=== PATIENT | female | born 1990 | race Caucasian/White ===

== ENCOUNTER 2018-02-02 08:57 | Inpatient (IN) ==
[2018-02-03] MEDS ORDERED: METHYLERGONOVINE 0.2 MG/ML INJECTION IM PRN (16:08)
[2018-02-03] MEDS ORDERED: CARBOPROST 250 MCG/ML INJECTION IM PRN (16:08)
[2018-02-03] MEDS ORDERED: CALCIUM CARBONATE Chewable 500mg TABLET PO PRN (16:08)
[2018-02-03] MEDS ORDERED: MAG-AL + SIM ORAL LIQUID 30ml PO PRN (16:08)
[2018-02-03] MEDS ORDERED: ACETAMINOPHEN 500 MG TABLET PO PRN (16:08)
[2018-02-03] MEDS ORDERED: DINOPROSTONE 10 MG VAGINAL INSERT VG ONE (16:08)
[2018-02-03] MEDS ORDERED: TERBUTALINE 1 MG/ML VIAL SQ PRN (16:08)
[2018-02-03] MEDS ORDERED: SALINE FLUSH 10ml SYRINGE IV PRN (16:08)
--- OUTSIDE RECORDS SUMMARY | 2018-02-03 16:11 | External Medical Summary | Continuity of Care Document ---
:1990 Author Organization [facility] Address [address] [place], [place] [id number] Phone Care Team Providers Name Role Phone Kimberly Willard APRN Unavailable Unavailable Allergies, Adverse Reactions, Alerts Substance Reaction Severity Status PENICILLIN Itchy Unknown Active Medications Medication Instructions Dosage Effective Dates Status Comments (start - stop) FIBER (unknown - Active strength) Zyrtec 10 mg - Active capsule 28 mg take 1 tablet by Not Available - Active iron-800 mcg oral route every tablet day Problems Condition Effective Dates (start - stop) Clinical Status Encntr for suprvsn of normal first - preg, third trimester 30 weeks gestation of - Encntr screen for infections w sexl - mode of transmiss Encounter for screening for oth - infec/parastc diseases Encntr for suprvsn of normal first - preg, first trimester Encounter for screening of - mother 10 weeks gestation of - Matern care for oth or susp poor fetl - grth, 2nd tri, unsp Encntr for suprvsn of normal first - preg, second trimester 19 weeks gestation of - Matern care for oth or susp poor fetl - grth, 2nd tri, unsp 14 weeks gestation of - Matern care for oth or susp poor fetl - grth, third tri, unsp Partial Placenta Previa Nos Or W/out - Hemorrhage, Third Trimester 30 weeks gestation of - Partial Placenta Previa Nos Or W/out - Hemorrhage, Second Trimester 23 weeks gestation of - Partial Placenta Previa Nos Or W/out - Hemorrhage, Third Trimester Abnormal glucose complicating - 28 weeks gestation of - Abnormal glucose complicating - Encntr for suprvsn of normal first - preg, second trimester 19 weeks gestation of - Encntr for suprvsn of normal first - preg, second trimester 26 weeks gestation of - Encntr for suprvsn of normal first - preg, third trimester 32 weeks gestation of - GERD Active Irritable Bowel Syndrome Active Procedures Procedure Date Immuniz admnin, 1 vac, sngl/combo 19 Yrs + TDAP VACCINE >7 IM OB Visit No Charge Results Test Name Date and Time Measure Units Reference Range Abnormal Flag Comments Unknown Advance Directives Directive Yes / No Effective Date File Name Unknown Encounters Encounter Practice Location Reason(s) Diagnoses Date Provider Care Team Description For Visit Members Edin [place] Encntr for Apr-2 Romero Referring In Womens suprvsn of normal 4-201 Alicia. Provider: Aaron [place], first preg, third 8 700 Alicia Romero [address] [id number] weeks Medical , 700 1522, gestation of [facility], Dr [facility] [address] WISDOM, 120, Smith 120, [id number], Skinny [place], [facility], [place], tel: [phone] [id number] , [place]. tel: tel: [phone] Edin [place] Encntr for Apr-1 Romero Referring In Womens suprvsn of normal 2-201 Alicia. Provider: Aaron [place], first preg, third 8 700 Alicia Romero PO Box [id number] weeks Medical , 700 1522, gestation of [facility], , [facility] [address] W[place], 120, Smith 120, [id number], [place], [place], tel: [phone]. , [place]. tel: tel: [phone] Edin [place] Matern care for Apr-1 Romero Referring In Womens Ultrasound oth or susp poor 2-201 Alicia. Provider: Aaron MANRIQUEZ, fetl grth, third 8 700 Alicia Romero PO Box tri, unspPartial Medical , 700 1522, [facility] Nos [facility] W/out , [facility] [address] WIS[place], Hemorrhage, Third 120, Smith 120, [id number], [id number] weeks Skinny [place], gestation of ALYX [place], tel: [phone]. , [place]. tel: tel: [phone] Edin [place] Partial Placenta Mar-2 Romero Referring In Womens Previa Nos Or 7-201 Alicia. Provider: Aaron MANRIQUEZ, W/out Hemorrhage, 8 700 Alicia Romero PO Box Third Medical , 700 1522, [facility]Ab[facility], glucose , [facility] [address] W[place], complicating 120, Smith 120, [id number], [email or web address] weeks Skinny [place], gestation of ALYX ALYX, tel: [phone]. , [place]. tel: tel: [phone] Edin [facility] Abnormal glucose Mar-2 Romero Referring In Womens complicating 2-201 Alicia. Provider: Aaron MANRIQUEZ, 8 700 Alicia Romero PO Box Medical , 700 1522, [place] [address] Dr [facility] [address] WISDOM, 120, Smith 120, [id number], Skinny [place], ALYX, ALYX, tel: [phone]. , [place]. tel: tel: [phone] Edin [place] Encntr for Mar-1 Romero Referring In Womens suprvsn of normal 4-201 Alicia. Provider: Aaron MANRIQUEZ, first preg, 8 700 Alicia Romero PO Box second Medical K, 700 1522, [email or web address] weeks [facility], gestation of Dr [facility] [address] WIS[place], 120, Smith 120, [id number], Skinny [place], ALYX, ALYX, tel:[phone]. , [place]. tel: tel: [phone] Edin [place] Partial Placenta Feb-2 Romero Referring In Womens Previa Nos Or 1-201 Alicia. Provider: Aaron MANRIQUEZ, W/out Hemorrhage, 8 [address] [facility], 700 1522, [email or web address] weeks [facility], gestation of Dr, [facility] [address] WISDOM, 120, Smith 120, , Skinny [place], ALYX, ALYX, tel:[phone]. , [place]. tel: tel: [phone] Edin [place] Encntr for Gee-2 Romero Referring In Womens suprvsn of normal 5-201 Alicia. Provider: Aaron MANRIQUEZ, first preg, 8 700 Alicia Romero PO Box [facility], 700 1522, [id number] weeks [facility], gestation of , [facility] [address] WISDOM, 120, Smith 120, , Skinny [place], ALYX WISDOM, tel:[phone]. , [place]. tel: tel: [phone] Edin Babb Matern care for Gee-2 Romero Referring In Womens Ultrasound oth or susp poor 5-201 Alicia. Provider: aysha Muniz, 2nd 8 700 Alicia Romero PO Box tri, [facility], for suprvsn of [facility], normal first , [facility] [address] WIS[place], preg, second 120, Smith 120, [id number], [id number] weeks Skinny [place], gestation of ALYX, ALYX, tel: [phone]. , [place]. tel: tel: [phone] Edin Babb Matern care for Dec-2 Romero Referring In Womens oth or susp poor 0-201 Alicia. Provider: aysha Muniz, 2nd 7 700 Alicia Romero PO Box tri, [email or web address] weeks Medical K, 700 1522, gestation of [place] Karthik Quiroga, , [facility] [place], 120, Smith 120, , [place]inny [place], [place], [place], tel:[phone]. , [place]. tel: tel: [phone] Edni Babb Encewelina screen for Nov-2 Romero Referring In Womens infections w sexl 2-201 Alicia. Provider: Aaron MANRIQUEZ, mode of 7 700 Alicia Romero PO Box transmissEncounte Medical K, 700 1522, r for screening [facility], for oth , [facility] [address] WIS[place], infec/parastc 120, Smith 120, , diseasesEncntr [place], for suprvsn of [place], [place], tel: normal first [phone]. preg, first , [place]. tel: trimesterEncounte tel: [phone] r for [phone] screening of [email or web address] weeks gestation of Edin B[place] Nov-2 Ava In Womens 0-201 Mercedes. Aaron MANRIQUEZ, 7 700 [address] [place] [facility] [address], [place] Dr Junaid, [facility] [place], 120, [id number], [place], [place], tel: [phone] , [place]. tel: [phone] Edin [place] Nov-1 Romero In Womens 3-201 Alicia. Aaron MANRIQUEZ, 7 700 PO Box Medical [address], [place] Dr Junaid, [facility] [place], 120, , [place], [place], tel:[phone] , [place]. tel: [phone] Family History Family Member Diagnosis Age At Onset No family history of Breast Cancer No family history of Thyroid Disorder No family history of Cardiovascular Disease No family history of Uterine Cancer No family history of Venous Thrombosis No family history of Pulmonary Embolism No family history of Hypertension No family history of Diabetes No family history of Stroke No family history of Ovarian Cancer No family history of Colon Cancer Immunizations Vaccine Date Status Comments Tdap completed Source: New Immunization Record Rhophylac completed Source: New Immunization Record Influenza, injectable, completed Source: New Immunization Record quadrivalent, preservative free, 3 yrs or older Influenza, injectable, completed Source: Other Provider quadrivalent, preservative free, 3 yrs or older Tdap completed Source: Other Provider MMR completed Source: Other Provider Payers Payer name Insurance type Covered democrat ID Authorization(s) [facility] [id number] [facility] [id number] [facility] [id number] [facility] [id number] Social History Type Description Quantity Date Captured Alcohol Use Details No Caffeine Use Details Unknown Tobacco Use Status Unknown Smoking Status Never smoker Vital Signs Date / Height Weight BMI Pulse Blood Temperature Respiratory Body Head BMI Time: Rate Pressure Rate Surface Circumference percentile Area 202.20 31.3 121/2018 lbs 8 mm[Hg] 8:40 kg/m AM eter (2) Chief Complaint And Reason For Visit Unknown Chief Complaint And Reason For Visit Reason For Referral Reason For Referral Unknown Plan Of Care Date Type Action Status Appointment Harriet Shankar BOOKED Appointment Harriet Shankar BOOKED Appointment Harriet Shankar BOOKED Appointment Harriet Shankar BOOKED Appointment Harriet Shankar BOOKED Future Order: Radiology Order Complete OB Ultrasound > 14 Ordered Weeks ([id number]) Future Order: Radiology Order Ultrasound OB Follow-up ([id number]) Ordered Date Type Problem Goal Intervention Status Start Date Unknown. History Of Present Illness Encounter Date Complaint History Of Present Illness This patient has no known history of present illness Functional Status Encounter Date Functional Assessment Cognitive Assessment Unknown Medications Administered Medication Instructions Dosage Effective Dates (start - stop) Status Comments Drug Treatment Unknown Instructions Date Instruction Additional Information gestational glucose lab screening HIV and other routine tests risk factors identified by history anticipated course of care nutrition and weight gain counseling, special diet toxoplasmosis precautions (cats / raw meat) exercise indications for ultrasound influenza vaccine environmental / work hazards travel tobacco (ask, advise, assess, assist and arrange) alcohol illicit / recreational drugs use of any medications (including supplements, vitamins, herbs, OTC drugs) smoking counseling domestic violence seat belt use genetic testing [facility] docs, dentist, wt gain 25-30# Zika virus assessment & precautions new ob handbook
--- OUTSIDE RECORDS SUMMARY | 2018-02-03 16:12 | External Medical Summary | Continuity of Care Document ---
:1990 Author Organization [facility] Address [address] [place], [place] [phone] Phone Care Team Providers Name Role Phone [...] Effective Dates (start - stop) Clinical Status Abnormal glucose complicating - Encntr screen for infections w sexl [...] complicating - 28 weeks gestation of - Encntr for suprvsn of normal first - preg, second trimester 19 weeks gestation of - Encntr for suprvsn of normal first - preg, second trimester 26 weeks gestation of - Encntr for suprvsn of normal first - preg, third trimester 30 weeks gestation of - GERD Active Irritable Bowel Syndrome Active Procedures Procedure Date Glucose tolerance test (GTT) GTT-added samples Venpnctr fngr/heel/ear stick routne Results Test Name Date and Time Measure Units Reference Range Abnormal Flag Comments Unknown Advance Directives Directive Yes / No Effective Date File Name Unknown Encounters Encounter Practice Location Reason(s) Diagnoses Date Provider Care Team Description For Visit Members Edin [place] Encntr for Romero Referring In Womens suprvsn of normal 2-201 Alicia. Provider: Aaron MANRIQUEZ, first preg, third 8 700 Alicia Romero PO Box [id number] weeks Medical , 700 1522, gestation of [facility] Junaid, Dr [facility] Dr WISDOM, 120, Smith 120, , Skinny [place], [place], [place], tel:[phone]. , [place]. tel: tel: [phone] Edin Babb Matern care for Romero Referring In Womens Ultrasound oth or susp poor 2-201 Alicia. Provider: Aaron MANRIQUEZ, fetl grth, third 8 700 Alicia Romero PO Box tri, unspPartial Medical K, 700 1522, Placenta Previa [facility], Nos Or W/out [facility] Dr WISDOM, Hemorrhage, Third 120, Smith 120, [id number], [id number] weeks Skinny [place], gestation of ALYX ALYX, tel: [phone]. , [place]. tel: tel: [phone] [facility] Partial Placenta Mar-2 Romero Referring In Womens Previa Nos Or 7-201 Alicia. Provider: Aaron MANRIQUEZ, W/out Hemorrhage, 8 700 Alicia Romero PO Box Third Medical K, 700 1522, TrimesterAbnormal [facility] [address], [facility] Dr WISDOM, complicating 120, Smith 120, [id number], [id number] weeks Skinny [place], gestation of ALYX WISDOM, tel: [phone]. , [place]. tel: tel: [phone] [facility] Abnormal glucose Mar-2 Romero Referring In Womens complicating 2-201 Alicia. Provider: Aaron MANRIQUEZ, 8 700 Alicia Romero PO Box Medical , 700 1522, [facility] Junaid, , [facility] Dr WISDOM, 120, Smith 120, , [place]inny [place], ALYX WISDOM, tel: [phone]. , [place]. tel: tel: [phone] [facility] Encntr for Mar-1 Romero Referring In Womens suprvsn of normal 4-201 Alicia. Provider: Aaron MANRIQUEZ, first preg, 8 700 Alicia Romero PO Box [facility] Medical , 700 1522, [email or web address] weeks [facility] Junaid, gestation of Dr, [facility] Dr WISDOM, 120, Smith 120, , [place]inny [place], ALYX WISDOM, tel:[phone]. , [place]. tel: tel: [phone] [facility] Partial Placenta Feb-2 Romero Referring In Womens Previa Nos Or 1-201 Alicia. Provider: Aaron MANRIQUEZ, W/out Hemorrhage, 8 700 Alicia Romero PO Box [facility] , 700 1522, [id number] weeks [facility] Junaid, gestation of , [facility] Dr WISDOM, 120, Smith 120, , [place]inny [place], ALYX WISDOM, tel:[phone]. , [place]. tel: tel: [phone] Edin [place] Encntr for Gee-2 Romero Referring In Womens suprvsn of normal 5-201 Alicia. Provider: Aaron MANRIQUEZ, first preg, 8 700 Alicia Romero PO Box second Medical , 700 1522, [id number] weeks [facility], gestation of Dr, [facility] Dr WISDOM, 120, Smith 120, , [place], [place] ALYX, ALYX, tel: [phone]. , [place]. tel: tel: [phone] Edin Babb Matern care for Gee-2 Romero Referring In Womens Ultrasound oth or susp poor 5-201 Alicia. Provider: [facility]QUEZ, [facility] 2nd 8 700 Alicia Romero PO Box tri, unspEncntr [facility], 700 1522, for suprvsn of [facility], normal first , [facility] Dr WISDOM, preg, second 120, Smith 120, [id number], [email or web address] weeks Skinny [place], gestation of ALYX, ALYX, tel: [phone]. , [place]. tel: tel: [phone] Edin Babb Matern care for Dec-2 Romero Referring In Womens oth or susp poor 0-201 Alicia. Provider: Aaron MANRIQUEZ, aysha villegas, 2nd 7 700 Alicia Romero PO Box tri, [email or web address] weeks Medical , 700 1522, gestation of [facility], Dr, [facility] Dr WISDOM, 120, Smith 120, , [place], [place] ALYX, ALYX, tel: [phone]. , [place]. tel: tel: [phone] Edin B[place] Encewelina screen for Nov-2 Romero Referring In Womens infections w sexl 2-201 Alicia. Provider: Aaron MANRIQUEZ, mode of 7 700 Alicia Romero PO Box transmissEncounte [facility], 700 1522, r for screening [facility], for oth Dr, [facility] Dr WISDOM, infec/parastc 120, Smith 120, , diseasesEncntr [place], for suprvsn of [place], tel: normal first [phone]. preg, first , [place]. tel: trimesterEncounte tel: [phone] r for [phone] screening of [id number] weeks gestation of [facility] Ava In Womens 0-201 Mercedes. [facility], 7 700 PO Box Medical [address], [place] [address] Junaid, [facility] ALYX, 120, [id number], [facility] [place], tel:[phone] , [place]. tel: [phone] [facility] Romero In Womens 3-201 Alicia. [facility], 7 700 PO Box Medical 15[address], [place] [address] Junaid, [facility] ALYX, 120, , [facility] [place], tel: [phone] , [place]. tel: [phone] Family History Family Member Diagnosis Age At [...] Provider Payers Payer name Insurance type Covered republican ID Authorization(s) [employer] [place] [id number] [employer] [place] [id number] [employer] [place] [id number] [employer] [place] [id number] Social History Type Description Quantity Date Captured Unknown Vital Signs Date / Height Weight BMI Pulse Blood Temperature Respiratory Body Head BMI Time: Rate Pressure Rate Surface Circumference percentile Area Unknown Chief Complaint And Reason For Visit Unknown Chief Complaint And Reason For Visit Reason For Referral Reason For Referral Unknown Plan Of Care Date Type Action Status Appointment Harriet Shankar BOOKED Appointment Harriet Shankar BOOKED Appointment Harriet Shankar BOOKED Appointment Harriet Shankar BOOKED Appointment Harriet Shankar BOOKED Appointment Harriet Shankar BOOKED Future Order: Radiology Order Complete OB Ultrasound > 14 Ordered Weeks ([id number]) Future Order: Radiology Order Ultrasound OB Follow-up ([id number]) Ordered Date Type Problem Goal Intervention Status [...]
--- OUTSIDE RECORDS SUMMARY | 2018-02-03 16:12 | External Medical Summary | Continuity of Care Document ---
:1990 Author Organization [facility] Address [address] [place], [place] [id number] Phone Care Team Providers Name Role Phone [...] Effective Dates (start - stop) Clinical Status Matern care for oth or susp poor fetl - grth, third tri, unsp Partial Placenta Previa Nos Or W/out - Hemorrhage, Third Trimester 30 weeks gestation of - Encntr screen [...] tri, unsp 14 weeks gestation of - Partial Placenta Previa [...] trimester 30 weeks gestation of - Encntr for suprvsn of normal first - preg, third trimester 32 weeks gestation of - GERD Active Irritable Bowel Syndrome Active Procedures Procedure Date Ultrasnd preg uterus, flwup/repeat Results Test Name Date and Time Measure Units Reference Range Abnormal Flag Comments Unknown Advance Directives Directive Yes / No Effective Date File Name Unknown Encounters Encounter Practice Location Reason(s) Diagnoses Date Provider Care Team Description For Visit Members Edin Babb Encntr for Apr-2 Romero Referring In Womens suprvsn of normal 4-201 Alicia. Provider: Aaron MANRIQUEZ, first preg, third 8 700 Alicia Romero PO Box [email or web address] weeks Medical , 700 1522, gestation of [facility] Dr [facility] Dr WISDOM, 120, [place] 120, [id number], Skinny [place], [facility], [place], tel: [phone]. , [place]. tel: tel: [phone] Edin Babb Encntr for Apr-1 Romero Referring In Womens suprvsn of normal 2-201 Alicia. Provider: Aaron MANRIQUEZ, first preg, third 8 700 Alicia Romero PO Box weeks Medical , 700 1522, gestation of [facility] Dr [facility] Dr WISDOM, 120, Smith 120, [id number], Skinny [place], [facility], [place], tel: [phone]. , . tel: tel: [phone] Edin Babb Matern care for Apr-1 Romero Referring In Womens Ultrasound oth or susp poor 2-201 Alicia. Provider: Aaron MANRIQUEZ, fetl grth, third 8 700 Alicia Romero PO Box tri, unspPartial Medical K, 700 1522, Placenta Previa [facility], Nos Or W/out , [facility] Dr WISDOM, Hemorrhage, Third 120, [place] 120, [id number], [email or web address] weeks Skinny [place], gestation of [place], tel: [phone]. , [place]. tel: tel: [phone] Edin Babb Partial Placenta Mar-2 Romero Referring In Womens Previa Nos Or 7-201 Alicia. Provider: Aaron MANRIQUEZ, W/out Hemorrhage, 8 700 Alicia Romero PO Box Third Medical , 700 1522, [facility] glucose , [facility] Dr WISDOM, complicating 120, [place] 120, [id number], [email or web address] weeks Skinny [place], gestation of [place], tel: [phone]. , [place]. tel: tel: [phone] Edin Torres Abnormal glucose Mar-2 Romero Referring In Womens complicating 2-201 Alicia. Provider: Aaron MANRIQUEZ, 8 700 Alicia Romero PO Box Medical , 700 1522, [place] [address], [facility] Dr WISDOM, 120, Smith 120, , [place], [place]DOM, tel: [phone]. , [place]. tel: tel: [phone] Edin Babb Encntr for Mar-1 Romero Referring In Womens suprvsn of normal 4-201 Alicia. Provider: Aaron MANRIQUEZ, first preg, 8 700 Alicia Romero PO Box second Medical K, 700 1522, [email or web address] weeks [facility] Junaid, gestation of , [facility] Dr WISDOM, 120, Smith 120, , Skinny [place], [place], tel: [phone]. , [place]. tel: tel: [phone] Edin Babb Partial Placenta Feb-2 Romero Referring In Womens Previa Nos Or 1-201 Alicia. Provider: Aaron MANRIQUEZ, W/out Hemorrhage, 8 700 Alicia Romero PO Box [facility], 700 1522, [id number] weeks [facility] [place], gestation of Dr, [facility] Dr WISDOM, 120, Smith 120, , Skinny [place], [place], [place], tel:[phone]. , [place]. tel: tel: [phone] Edin Babb Encntr for Gee-2 Romero Referring In Womens suprvsn of normal 5-201 Alicia. Provider: Aaron MANRIQUEZ, first preg, 8 700 Alicia Romero PO Box [facility], 700 1522, [email or web address] weeks [facility], gestation of Dr, [facility] Dr WISDOM, 120, Smith 120, , Skinny [place], [place], tel: [phone]. , [place]. tel: tel: [phone] Edin Babb Matern care for Gee-2 Romero Referring In Womens Ultrasound oth or susp poor 5-201 Alicia. Provider: aysha Muniz, 2nd 8 700 Alicia Romero PO Box tri, unspEncntr [facility], 700 1522, for suprvsn of [facility], normal first , [facility] Dr WISDOM, preg, second 120, Smith 120, [id number], [email or web address] weeks Skinny [place], gestation of [place], tel: [phone]. , [place]. tel: tel: [phone] Edin Babb Matern care for Dec-2 Romero Referring In Womens oth or susp poor 0-201 Alicia. Provider: erlin Munizl tiffani, 2nd 7 700 Alicia Romero PO Box tri, [email or web address] weeks [facility], 700 1522, gestation of [facility], , [facility] Dr WISDOM, 120, Smith 120, [id number], Skinny [place], [place], [place], tel:[phone]. , [place]. tel: tel: [phone] Edin Babb Encewelina screen for Jun- Romero Referring In Womens infections w sexl 2-201 Alicia. Provider: Health [facility]CLAN, mode of 7 700 Alicia Romero PO [facility], 700 1522, r for screening [facility], for oth , [facility] Dr WISDOM, infec/parastc 120, Smith 120, , diseasesEncntr [place]inny [place], for suprvsn of [place], [place], tel: normal first [phone]. preg, first , [place]. tel: trimesterEncounte tel: [phone] r for [phone] screening of [id number] weeks gestation of Edin Babb Jun-2 Ava In Womens 0-201 Mercedes. Health DECLAN, 7 700 PO Box Medical [address], [address] [address] [place], [facility] [place], 120, [id number], [place], [place], tel:[phone] , [place]. tel: [phone] Edin Babb Jun-1 Romero In Womens 3-201 Alicia. Health DECLAN, 7 700 PO Box Medical 1522, [address] [place]una[place], [facility] [place], 120, [id number], [place], [place], tel:[phone] , [place]. tel: [phone] Family History Family Member Diagnosis Age At [...] name Insurance type Covered democrat ID Authorization(s) [facility] [id number] [facility] [id number] [facility] [id number] [facility] [id number] Social History Type Description Quantity Date Captured [...] Harriet Shankar BOOKED Future Order: Radiology Order Ultrasound OB Follow-up ([id number]) Ordered Future Order: Radiology Order Complete OB Ultrasound > 14 Ordered Weeks ([id number]) Date Type Problem Goal Intervention Status Start [...]
--- OUTSIDE RECORDS SUMMARY | 2018-02-03 16:12 | External Medical Summary | Continuity of Care Document ---
:1990 Author Organization [facility] Address [address] [place], [place] [phone] Phone Care Team Providers Name Role Phone Kimberly Willard APRN Unavailable Unavailable Allergies, Adverse Reactions, Alerts Substance Reaction Severity Status PENICILLIN Itchy Unknown Active Medications Medication Instructions Dosage Effective Dates Status Comments (start - stop) FIBER (unknown - Active strength) Zyrtec 10 mg - Active capsule 28 mg take 1 tablet by Not Available - Active iron-800 mcg oral route every tablet day KEFLEX (unknown take 1 capsule by - No Longer strength) oral route every Active 8 hours Problems Condition Effective Dates (start - stop) Clinical Status Encntr for suprvsn of normal first - preg, second trimester 26 weeks gestation of - Encntr screen for [...] second trimester 19 weeks gestation of - GERD Active Irritable Bowel Syndrome Active Procedures Procedure Date OB Visit No Charge Hemoglobin count, colorimetric Hematocrit blood count Venpnctr fngr/heel/ear stick routne RBC antibody screen, each Glucose test Results Test Name Date and Time Measure Units Reference Range Abnormal Flag Comments Panel Description: Hemoglobin [Mass/volume] in Blood Hemoglobin 16:58:00 11.0 g/dL 11.1-15.9 L Panel Description: Glucose [Mass/volume] in Serum or Plasma --1 hour post 50 g glucose PO Gestational Diabetes 147 mg/dL 65-139 H According to ADA, a glucose Screen 16:58:00 threshold of >139 mg/dL after 50-gramload identifies approximately 80% of women with gestationaldiabetes mellitus, while the sensitivity is further increased toapproximately 90% by a threshold of >129 mg/dL. Panel Description: Hematocrit [Volume Fraction] of Blood by Automated count Hematocrit 16:58:00 34.2 % 34.0-46.6 Panel Description: Blood group antibody screen [Presence] in Serum or Plasma Antibody Screen 16:58:00 Negative Negative Advance Directives Directive Yes / No Effective Date File Name Unknown Encounters Encounter Practice Location Reason(s) Diagnoses Date Provider Care Team Description For Visit Members Associates [facility]inny Partial Placenta Romero Referring In Womens Previa Nos Or 7-201 Alicia. Provider: [facility], W/out Hemorrhage, 8 700 Alicia Romero PO Box [facility] Medical K, 700 7412, TrimesterAbnormal [facility] [place], glucose , [place] [facility] [address] WISDOM, complicating 120, [place] 120, [id number], [email or web address] weeks Skinny [place], gestation of [place], tel: [phone]. , [place]. tel: tel: [phone] Associates CHAR Torres Abnormal glucose Mar-2 Romero Referring In Womens complicating 2-201 Alicia. Provider: Aaron MANRIQUEZ, 8 700 Alicia Romero PO Box Medical , 700 1522, [place] Quiro[place], , [facility] Dr WISDOM, 120, Smith 120, [id number], Skinny [place], [place], [place], tel: [phone]. , [place]. tel: tel: [phone] Edin Babb Encntr for Oct-1 Romero Referring In Womens suprvsn of normal 4-201 Alicia. Provider: Aaron MANRIQUEZ, first preg, 8 700 Alicia Romero PO Box [facility] Medical , 700 1522, [email or web address] [facility] of Dr, [facility] Dr WISDOM, 120, Smith 120, , Skinny B[place], [facility] [place], tel: [phone]. , [place]. tel: tel: [phone] Edin Babb Partial Placenta Feb-2 Romero Referring In Womens Previa Nos Or 1-201 Alicia. Provider: Aaron MANRIQUEZ, W/out Hemorrhage, 8 700 Alicia Romero PO Box [facility] , 700 1522, [id number] weeks [facility] [place], gestation of , [facility] Dr WISDOM, 120, Smith 120, , [place]inny [place], [place], [place], tel: [phone]. , [place]. tel: tel: [phone] Edin Babb Encntr for Gee-2 Romero Referring In Womens suprvsn of normal 5-201 Alicia. Provider: Aaron MANRIQUEZ, first preg, 8 700 Alicia Romero PO Box second Medical , 700 1522, [email or web address] weeks [facility] [place], gestation of , [facility] Dr WISDOM, 120, Smith 120, , [place]inny [place], [place], tel: [phone]. , [place]. tel: tel: [phone] Edin Babb Matern care for Gee-2 Romero Referring In Womens Ultrasound oth or susp poor 5-201 Alicia. Provider: Aaron MANRIQUEZ, [facility], 2nd 8 700 Alicia Romero PO Box tri, unspEncntr [facility], 700 1522, for suprvsn of [facility], normal first , [facility] Dr WISDOM, preg, second 120, Smith 120, , [email or web address] weeks Skinny [facility] gestation of [place], [place], tel: [phone]. , [place]. tel: tel: [phone] Edin Babb Matern care for Dec-2 Romero Referring In Womens oth or susp poor 0-201 Alicia. Provider: Aaron MANRIQUEZ, [facility], 2nd 7 700 Alicia Romero PO Box tri, unsp14 weeks [facility], 700 1522, gestation of [facility], Dr, [facility] Dr WISDOM, 120, Smith 120, , Skinny [place], [place], [place], tel: [phone]. , [place]. tel: tel: [phone] Edin Babb Encewelina screen for Nov-2 Romero Referring In Womens infections w sexl 2-201 Alicia. Provider: Aaron MANRIQUEZ, mode of 7 700 Alicia Romero PO Box [facility] 700 1522, r for screening [facility], for oth , [facility] Dr WISDOM, infec/parastc 120, Smith 120, , diseasesEncntr [place], for suprvsn of [place], tel: normal first [phone]. preg, first , [place]. tel: trimesterEncounte tel: [phone] r for [id number] screening of weeks gestation of Edin Babb Nov-2 Ava In Womens 0-201 Mercedes. [facility], 7 700 [facility] 15[address], [place] [address] [place], [place], 120, [id number], [facility] [place], tel:[phone] , [place]. tel: [phone] Edin Babb Romero In Womens 3-201 Alicia. [facility], 7 700 [facility], [place] [address] [place], [place], 120, [id number], [facility] [place], tel:[phone] , [place]. tel: [phone] Family History Family Member Diagnosis Age At [...] Colon Cancer Immunizations Vaccine Date Status Comments Rhophylac completed Source: New Immunization Record Influenza, injectable, completed Source: New Immunization Record quadrivalent, preservative free, 3 yrs or older Influenza, injectable, completed Source: Other Provider quadrivalent, preservative free, 3 yrs or older Tdap completed Source: Other Provider [facility] completed Source: Other Provider Payers Payer name Insurance type Covered green party ID Authorization(s) [facility] [id number] [facility] [id number] [facility] [id number] Social History Type Description Quantity Date Captured Alcohol Use Details No Caffeine Use Details Unknown Tobacco Use Status Unknown Smoking Status Never smoker Vital Signs Date / Height Weight BMI Pulse Blood Temperature Respiratory Body Head BMI Time: Rate Pressure Rate Surface Circumference percentile Area 197.10 30.5 142/90 lbs 9 mm[Hg] 3:59 kg/m PM eter (2) Chief Complaint And Reason For [...] Complete OB Ultrasound > 14 Ordered Weeks (50604) Date Type Problem Goal Intervention Status Start [...]
--- OUTSIDE RECORDS SUMMARY | 2018-02-03 16:12 | External Medical Summary | Continuity of Care Document ---
:1990 Author Organization [facility] Address [address] [place], [place] [phone] Phone Care Team Providers Name Role Phone [...] Dates (start - stop) Clinical Status Encntr screen for infections w sexl - [...] Irritable Bowel Syndrome Active Procedures Procedure Date Unknown Results Test Name Date and Time Measure Units Reference Range Abnormal Flag Comments Unknown Advance Directives Directive Yes / No Effective Date File Name Unknown Encounters Encounter Practice Location Reason(s) Diagnoses Date Provider Care Team Description For Visit Members Edin Babb Encntr for Apr-1 Romero Referring In Womens suprvsn of normal 2-201 Alicia. Provider: Aaron MANRIQUEZ, first preg, third 8 700 Alicia Romero PO Box [id number] weeks Medical , 700 1522, gestation of [facility] Juna[place], , [facility] Dr WISDOM, 120, Smith 120, , Skinny [place], [place], tel: [phone]. , [place]. tel: tel: [phone] Edin Babb Matern care for Apr-1 Romero Referring In Womens Ultrasound oth or susp poor 2-201 Alicia. Provider: Aaron MANRIQUEZ, fetl grth, third 8 700 Alicia Romero PO Box tri, unspPartial Medical K, 700 1522, Placenta Previa [facility] Junaid, Nos Or W/out , [facility] Dr WISDOM, Hemorrhage, Third 120, Smith 120, [id number], [email or web address] weeks Skinny [place], gestation of [place], tel: [phone]. , [place]. tel: tel: [phone] Edin Babb Partial Placenta Mar-2 Romero Referring In Womens Previa Nos Or 7-201 Alicia. Provider: Aaron MANRIQUEZ, W/out Hemorrhage, 8 700 Alicia Romero PO Box [facility] Medical , 700 1522, TrimesterAbnormal [address], [facility] Dr WISDOM, complicating 120, [place] 120, [id number], [email or web address] weeks Skinny [place], gestation of [place], [place], tel: [phone]. , [place]. tel: tel: [phone] Edin Babb Mar-2 Romero In Womens 3-201 Alicia. Aaron MANRIQUEZ, 8 700 PO Box Medical 15[address], [address] [place], [facility] [place], 120, [id number], [place], [place], tel: [phone] , [place]. tel: [phone] Edin Torres Abnormal glucose Mar-2 Romero Referring In Womens complicating 2-201 Alicia. Provider: Aaron MANRIQUEZ, 8 700 Alicia Romero PO Box Medical , 700 1522, [facility] Dr Junaid, [facility] Dr WISDOM, 120, Smith 120, [id number], [place]inny [place], [place], [place], tel: [phone]. , [place]. tel: tel: [phone] Edin Babb Encntr for Mar-1 Romero Referring In Womens suprvsn of normal 4-201 Alicia. Provider: Aaron MANRIQUEZ, first preg, 8 700 Alicia Romero PO Box [facility], 700 1522, [email or web address] weeks [facility] J[place], gestation of , [facility] Dr WISDOM, 120, [place] 120, [id number], [place], [place], [place], tel: [phone]. , [place]. tel: tel: [phone] Edin Babb Partial Placenta Feb-2 Romero Referring In Womens Previa Nos Or 1-201 Alicia. Provider: Aaron MANRIQUEZ, W/out Hemorrhage, 8 700 Alicia Romero PO Box [facility] Medical , 700 1522, [email or web address] weeks [facility], gestation of Dr [facility] Center Dr WISDOM, 120, [place] 120, [id number], Skinny [place], [place] WIS[place], tel: [phone]. , [place]. tel: tel: [phone] Edin Babb Encntr for Gee-2 Romero Referring In Womens suprvsn of normal 5-201 Alicia. Provider: Aaron MANRIQUEZ, first preg, 8 700 Alciia Romero PO Box second Medical , 700 1522, weeks [facility], gestation of Dr, [facility] Center Dr WISDOM, 120, [place] 120, , [place], [place], tel:[phone]. , [place]. tel: tel: [phone] Edin Babb Matern care for Gee-2 Romero Referring In Womens Ultrasound oth or susp poor 5-201 Alicia. Provider: Aaron MANRIQUEZ fetl [email or web address] 2nd 8 700 Alicia Romero PO Box tri, unspEncntr [facility], 700 1522, for suprvsn of [facility], normal first , [facility] Dr WISDOM, preg, second 120, [place] 120, [id number], [id number] weeks Skinny [place], gestation of [place], tel: [phone]. , [place]. tel: tel: [phone] Edin Babb Matern care for Dec-2 Romero Referring In Womens oth or susp poor 0-201 Alicia. Provider: aAron MANRIQUEZ, fetl [email or web address] 2nd 7 700 Alicia Romero PO Box tri, unsp14 weeks [facility], 700 1522, gestation of [facility] Juna[place], , [facility] Center Dr WISDOM, 120, [place] 120, , [place], [place], tel:[phone]. , [place]. tel: tel: [phone] Edin Babb Encntr screen for Nov-2 Romero Referring In Womens infections w sexl 2-201 Alicia. Provider: Aaron MANRIQUEZ, mode of 7 700 Alicia Romero PO Box transmissEncounte Medical K, 700 1522, r for screening [facility], for oth , [facility] Dr WISDOM, infec/parastc 120, [place] 120, [id number], [facility], for suprvsn of [place], tel: normal first [phone]. preg, first , [place]. tel: trimesterEncounte tel: [phone] r for [phone] screening of [id number] weeks gestation of Associates Skinny Ava In Womens 0-201 Mercedes. Aaron MANRIQUEZ, 7 700 PO Box Medical 15[address], [address] [place], [facility], 120, [id number], [facility] [place], tel:[phone] , [place]. tel: [phone] [facility] Romero In Womens 3-201 Alicia. Aaron MANRIQUEZ, 7 700 PO Box Medical 15[address], [address] J[place], [facility] [place], 120, , [facility] [place], tel: [phone] , [place]. tel: [phone] Family History Family Member Diagnosis Age At [...] name Insurance type Covered republican ID Authorization(s) [facility] [id number] [facility] [id number] [facility] [id number] [facility] [id number] Social History Type Description Quantity Date Captured [...] Complete OB Ultrasound > 14 Ordered Weeks (96099) Future Order: Radiology Order Ultrasound OB Follow-up ([id number]) Ordered Date Type Problem Goal Intervention Status [...]
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
--- OUTSIDE RECORDS SUMMARY | 2018-02-03 16:12 | External Medical Summary | Continuity of Care Document ---
:1990 Author Organization [facility] [employer] [facility] Address [address] [place], [place] [phone] Phone Care Team Providers Name Role Phone Kimberly Willard APRN Unavailable Unavailable Allergies, Adverse Reactions, Alerts Substance Reaction Severity Status PENICILLIN Itchy Unknown Active Medications Medication Instructions Dosage Effective Dates Status Comments (start - stop) KEFLEX (unknown take 1 capsule by - Active strength) oral route every 8 hours FIBER (unknown - Active strength) Zyrtec 10 mg - Active capsule 28 mg take 1 tablet by Not Available - Active iron-800 mcg oral route every tablet day Problems Condition Effective Dates (start - stop) Clinical Status Partial Placenta Previa Nos Or W/out - Hemorrhage, Second Trimester 23 weeks gestation of - Encntr screen for [...] tri, unsp 14 weeks gestation of - Encntr for suprvsn of normal first - preg, second trimester 19 weeks gestation of - GERD Active Irritable Bowel Syndrome Active Procedures Procedure Date OB Visit No Charge Results Test Name Date and Time Measure Units Reference Range Abnormal Flag Comments Unknown Advance Directives Directive Yes / No Effective Date File Name Unknown Encounters Encounter Practice Location Reason(s) Diagnoses Date Provider Care Team Description For Visit Members Edin Babb Oct- Romero Referring In Womens 4-201 Alicia. Provider: Aaron MANRIQUEZ, 8 700 Alicia Romero PO Box Medical , 700 1522, [place] Karthik Quiroga, , [facility] Dr WISDOM, 120, Smith 120, [id number], Skinny [place]abb, [place], [place], tel: [phone]. , [place]. tel: tel: [phone] Edin Babb Partial Placenta Sep- Romero Referring In Womens Previa Nos Or 1-201 Alicia. Provider: Aaron MANRIQUEZ, W/out Hemorrhage, 8 700 Alicia Romero PO Box [facility], 700 1522, [email or web address] weeks [facility] gestation of Dr, [facility] Dr WISDOM, 120, Smith 120, , Skinny [place], [place], [place], tel: [phone]. , [place]. tel: tel: [phone] Edin Babb Encntr for Aug- Romero Referring In Womens suprvsn of normal 5-201 Alicia. Provider: Aaron MANRIQUEZ, first preg, 8 700 Alicia Romero PO Box [facility] Medical , 700 1522, [email or web address] weeks [facility], gestation of Dr, [facility] Dr WISDOM, 120, Smith 120, [id number], Skinny [place], [place], [place], tel: [phone]. , [place]. tel: tel: [phone] Edin Babb Matern care for Aug- Romero Referring In Womens Ultrasound oth or susp poor 5-201 Alicia. Provider: Aaron MANRIQUEZ fetl grth, 2nd 8 700 Alicia Romero PO Box tri, unspEncntr [facility], 700 1522, for suprvsn of [facility], normal first , [facility] Dr WISDOM, preg, second 120, Smith 120, [id number], [email or web address] weeks Skinny [place], gestation of [place], [place], tel: [phone]. , [place]. tel: tel: [phone] Edin Babb Matern care for Dec-2 Romero Referring In Womens oth or susp poor 0-201 Alicia. Provider: Aaron MANRIQUEZ, fetl gr, 2nd 7 700 Alicia Romero PO Box tri, [email or web address] weeks Medical , 700 1522, gestation of [facility], , [facility] Dr WISDOM, 120, Smith 120, , Skinny Babb, [place], [place], tel: [phone]. , [place]. tel: tel: [phone] Edin Babb Encntr screen for Nov-2 Romero Referring In Womens infections w sexl 2-201 Alicia. Provider: Aaron MANRIQUEZ, mode of 7 700 Alicia Romero PO Box transmissEncounte Medical K, 700 1522, r for screening [facility], for oth , [facility] Dr WISDOM, infec/parastc 120, Smith 120, , diseasesEncntr Skinny [place], for suprvsn of [place], [place], tel:+ normal first [phone]. preg, first , [place]. tel: trimesterEncounte tel: [phone] r for [phone] screening of [id number] weeks gestation of Edin Babb Nov-2 Ava In Womens 0-201 Mercedes. Aaron MANRIQUEZ, 7 700 PO Box Medical [address], [place] [address] J[place], [place], 120, [id number], Skinny, [place], tel: [phone] , [place]. tel: [phone] Edin Babb Nov-1 Romero In Womens 3-201 Alicia. Aaron MANRIQUEZ, 7 700 PO Box Medical 15[address], [place] [address] Juna[place], [place], 120, [id number], [facility], tel:[phone] , . tel:[phone] Family History Family Member Diagnosis Age At [...] Colon Cancer Immunizations Vaccine Date Status Comments Influenza, injectable, completed Source: New Immunization Record quadrivalent, preservative free, 3 yrs or older Influenza, injectable, completed Source: Other Provider quadrivalent, preservative free, 3 yrs or older Tdap completed Source: Other Provider MMR completed Source: Other Provider Payers Payer name Insurance type Covered libertarian ID Authorization(s) [facility] [id number] [facility] [id number] Social History Type Description Quantity Date Captured Alcohol Use Details No Caffeine Use Details Unknown Tobacco Use Status Unknown Smoking Status Never smoker Vital Signs Date / Height Weight BMI Pulse Blood Temperature Respiratory Body Head BMI Time: Rate Pressure Rate Surface Circumference percentile Area 192.90 29.9 133/2018 lbs 4 mm[Hg] 4:14 kg/m PM eter (2) Chief Complaint And Reason For Visit Unknown Chief Complaint And Reason For Visit Reason For Referral Reason For Referral Unknown Plan Of Care Date Type Action Status Future Order: Radiology Order Complete OB Ultrasound > 14 Ordered Weeks ([id number]) Date Type Problem Goal Intervention Status Start Date Unknown. History Of Present Illness Encounter Date Complaint History Of Present Illness This patient has no known history of present illness Functional Status Encounter Date Functional Assessment Cognitive Assessment Unknown Medications Administered Medication Instructions Dosage Effective Dates (start - stop) Status Comments Drug Treatment Unknown Instructions Date Instruction Additional Information HIV and other routine tests risk factors [...]
--- OUTSIDE RECORDS SUMMARY | 2018-02-03 16:12 | External Medical Summary | Continuity of Care Document ---
:1990 Author Organization [facility] Address [address] [place], [place] [phone] Phone Care Team Providers Name Role Phone [...] third trimester 32 weeks gestation of - Encntr screen for [...] of normal first - preg, third trimester 34 weeks gestation of - GERD Active Irritable Bowel Syndrome Active Procedures Procedure Date OB Visit No Charge Results Test Name Date and Time Measure Units Reference Range Abnormal Flag Comments Unknown Advance Directives Directive Yes / No Effective Date File Name Unknown Encounters Encounter Practice Location Reason(s) Diagnoses Date Provider Care Team Description For Visit Members Edin Babb Encmarileer for December- Romero Referring In Womens suprvsn of normal 8-201 Alicia. Provider: [facility], first preg, third 8 700 Alicia Romero PO Box [id number] weeks Medical , 700 1522, gestation of [facility], Dr [facility] Dr WISDOM, 120, Smith 120, [id number], Skinny Babb, [facility], [place], tel: [phone]. [id number] , [place]. tel: tel: [phone] Edin Babb Encntr for Nov-2 Romero Referring In Womens suprvsn of normal 4-201 Alicia. Provider: [facility], first preg, third 8 700 Alicia Romero PO Box [email or web address] weeks Medical , 700 1522, gestation of [facility], , [facility] Dr WISDOM, 120, Smith 120, [id number], Skinny Babb, [facility], [place], tel: [phone]. , [place]. tel: tel: [phone] [facility] Encntr for Apr-1 Romero Referring In Womens suprvsn of normal 2-201 Alicia. Provider: Aaron MANRIQUEZ, first preg, third 8 700 Alicia Romero PO Box [email or web address] weeks Medical , 700 1522, gestation of [place] Karthik Quiroga, , [facility] Dr WISDOM, 120, Smith 120, [id number], Skinny [place], [place], [place], tel: [phone]. , [place]. tel: tel: [phone] [facility] Matern care for Apr-1 Romero Referring In Womens Ultrasound oth or susp poor 2-201 Alicia. Provider: Aaron MANRIQUEZ, fetl grth, third 8 700 Alicia Romero PO Box tri, unspPartial Medical , 700 1522, Placenta Previa [facility] Junaid, Nos Or W/out Dr, [facility] Dr WISDOM, Hemorrhage, Third 120, Smith 120, [id number], [id number] weeks Skinny [place], gestation of [place] W[place]DOM, tel: [phone]. , [place]. tel: tel: [phone] Edin Babb Partial Placenta Mar-2 Romero Referring In Womens Previa Nos Or 7-201 Alicia. Provider: Aaron MANRIQUEZ, W/out Hemorrhage, 8 700 Alicia Romero PO Box Third Medical K, 700 1522, TrimesterAbnormal [facility] Junaid, glucose , [facility] Dr WISDOM, complicating 120, Smith 120, [id number], [id number] weeks Skinny [place], gestation of [place] WISDOM, tel: [phone]. , [place]. tel: tel: [phone] [facility] Torres Abnormal glucose Mar-2 Romero Referring In Womens complicating 2-201 Alicia. Provider: Aaron MANRIQUEZ, 8 700 Alicia Romero PO Box Medical , 700 1522, [place] K[address] Qu[address] Dr, [facility] Dr WISDOM, 120, Smith 120, [id number], Skinny [place], [place], [place], tel: [phone]. , [place]. tel: tel: [phone] Edin Babb Encntr for Oct- Romero Referring In Womens suprvsn of normal 4-201 Alicia. Provider: Aaron MANRIQUEZ, first preg, 8 700 Alicia Romero PO Box [facility], 700 1522, [email or web address] weeks [facility], gestation of Dr, [facility] Dr WISDOM, 120, Smith 120, , [place], [place], [place], tel: [phone]. , [place]. tel: tel: [phone] Edin Babb Partial Placenta Feb- Romero Referring In Womens Previa Nos Or 1-201 Alicia. Provider: Aaron MANRIQUEZ, W/out Hemorrhage, 8 700 Alicia Romero PO Box [facility], 700 1522, [id number] weeks [facility], gestation of Dr, [facility] Dr WISDOM, 120, Smith 120, , Skinny [place], [place], [place], tel: [phone]. , [place]. tel: tel: [phone] Edin Babb Encntr for Aug- Romero Referring In Womens suprvsn of normal 5-201 Alicia. Provider: Aaron MANRIQUEZ, first preg, 8 700 Alicia Romero PO Box [facility] Medical K, 700 1522, [email or web address] weeks [facility], gestation of Dr, [facility] Dr WISDOM, 120, Smith 120, , Skinny [place], [place], [place], tel: [phone]. , [place]. tel: tel: [phone] Edin Babb Matern care for Gee-2 Romero Referring In Womens Ultrasound oth or susp poor 5-201 Alicia. Provider: Aaron MANRIQUEZ, fetl grth, 2nd 8 700 Alicia Romero PO Box tri, [facility] 700 1522, for suprvsn of [facility], normal first , [facility] Dr WISDOM, preg, second 120, Smith 120, , [id number] weeks Skinny [place], gestation of [place], [place], tel:[phone]. , [place]. tel: tel: [phone] Edin Babb Matern care for Dec-2 Romero Referring In Womens oth or susp poor 0-201 Alicia. Provider: Aaron MANRIQUEZ, fetl gr, 2nd 7 700 Alicia Romero PO Box tri, unsp14 weeks [facility], 700 1522, gestation of [facility], , [facility] Dr WISDOM, 120, Smith 120, , Skinny B[place], [place] WISDOM, tel:+ [phone]. , [place]. tel: tel: [phone] Edin Babb Encntbora screen for Nov-2 Romero Referring In Womens infections w sexl 2-201 Alicia. Provider: Aaron MANRIQUEZ, mode of 7 700 Alicia Romero PO Box [facility], 700 1522, r for screening [facility], for oth , [facility] Dr WISDOM, infec/parastc 120, Smith 120, , diseasesEncntr [place]inny [place], for suprvsn of [place], [place], tel:+2 normal first [phone]. preg, first , [place]. tel: trimesterEncounte tel: [phone] r for [phone] screening of [id number] weeks gestation of Edin Babb Nov-2 Ava In Womens 0-201 Mercedes. Aaron MANRIQUEZ, 7 700 PO Box Medical [address], [address], [place], 120, [id number], [place], [place], tel: [phone] , [place]. tel: [phone] Edin Babb Nov-1 Romero In Womens 3-201 Alicia. Aaron MANRIQUEZ, 7 700 PO Box Medical [address], [place] Dr Junaid, [facility], 120, [id number], [facility] [place], tel:[phone] , . tel:[phone] Family History Family Member Diagnosis Age At [...] name Insurance type Covered democrat ID Authorization(s) [facility] [id number] [facility] [id number] [facility] [id number] [facility] [id number] Social History Type Description Quantity Date Captured Alcohol Use Details No Caffeine Use Details Unknown Tobacco Use Status Unknown Smoking Status Never smoker Vital Signs Date / Height Weight BMI Pulse Blood Temperature Respiratory Body Head BMI Time: Rate Pressure Rate Surface Circumference percentile Area . 31.6 119/70 lbs 5 mm[Hg] 8:39 kg/m AM eter (2) 31.6 139/82 2018 lbs 5 mm[Hg] 8:38 kg/m AM eter (2) 8 8:32 kg/m AM eter (2) Chief Complaint And Reason For Visit Unknown Chief Complaint And Reason For Visit Reason For Referral Reason For Referral Unknown Plan Of Care Date Type Action Status Appointment Harriet Shankar BOOKED Appointment Harriet Shankar BOOKED Appointment Harriet Shankar BOOKED Appointment Harriet Shankar BOOKED Appointment Harriet Shankar BOOKED Future Order: Radiology Order Complete OB Ultrasound > 14 Ordered Weeks ([id number]) Future Order: Radiology Order Ultrasound OB Follow-up ([id number]) Ordered Date Type Problem Goal Intervention Status [...]
--- OUTSIDE RECORDS SUMMARY | 2018-02-03 16:13 | External Medical Summary | Continuity of Care Document ---
:1990 Author Organization [facility] Allergies Active Description Code Type Severity Reaction Onset Reported/ Identified Relationship Clinical to Patient Status Yes PENICILLIN 31269 1 N/A Itchy Yes Penicillins Aller Unknown N/A 10/17/2017 gy Medications Medication Packaging Start Date Stop Date Route Dosage Sig 05/26/2017 PO 1 each Sprintec 28 Day DAILY Tablet 05/27/2017 PO 1 each Thera-M DAILY 05/27/2017 PO 10 mg Zyrtec DAILY 05/27/2017 Intranasal 120 Flonase spray/16 g Capsule 09/04/2017 OSELTAMIVIR 8 take 1 PHOSPHATE capsule by oral route 2 times every day 09/04/2017 PO 1 each DAILY Vitamins 09/04/2017 PO 0.52 gm Konsyl DAILY 10/17/2017 INH 6.7 gm Proventil Hfa Q4H 90mcg Problems Date Dx Attending Type Code Diagnosis Diagnosed By Coded 09/11/2017 Alicia Romero O36.5920 Matern care for oth or susp poor fetl grth, 2nd tri, unsp 09/11/2017 Alicia Romero Z34.02 Encntr for suprvsn of normal first preg, second trimester 09/11/2017 Alicia Romero Z3A.19 19 weeks gestation of 11/07/2017 Alicia Romero O99.810 Abnormal glucose complicating 11/27/2017 Alicia Romero O36.5930 Matern care for oth or susp poor fetl grth, third tri, unsp 11/27/2017 Alicia Romero O44.23 Partial Placenta Previa Nos Or W/out Hemorrhage, Third Trimester 11/27/2017 Alicia Romero Z3A.30 30 weeks gestation of Procedures Code Description [place] [address] Ultrasnd 09/11/2017 exam of preg uterus, compl 91318 Venpnctr 11/06/2017 fngr/heel/ear stick routne 61936 Glucose 11/06/2017 tolerance test (GTT) 12854 GTT-added 11/06/2017 samples 28331 Ultrasnd 11/27/2017 preg uterus, flwup/repeat Results Test Result Range L908.3176 - 05/27/17 17:54 LTSHRTSHR 1.71 uIU/mL 0.35-4.94 L550.3405 - 06/11/17 14:53 LSTREPAT-AMB Negative Negative L550.3500 - 09/04/17 15:14 Influenza A Antigen Scr Result Positive Negative Influenza B Antigen Scr Result Negative Negative L550.3406 - 10/10/17 11:02 BEDSKRPH-NSM-FZE Negative Negative L550.3500 - 10/10/17 11:02 Influenza A Antigen Scr Result Negative Negative Influenza B Antigen Scr Result Negative Negative M750.4390 - 10/10/17 11:02 Group A Strep Culture - AMS Source: Throat NRG Collected: 10/10/17 11:02 Encounters ACCT No. Visit Discharge Status Pt. Type Provider Facility Loc./Unit Complaint Date/Time [id number] 01/20/2018 01/20/2018 [facility] Outpatient [facility]ero, 16:30:00 23:59:59 Alicia Peck [id number] 01/13/2018 01/13/2018 [facility] Outpatient Romero, 16:30:00 23:59:59 Alicia Peck [id number] 01/06/2018 01/06/2018 CLS Outpatient Romero, 16:25:00 23:59:59 Alicia Peck [id number] 12/23/2017 12/23/2017 CLS Outpatient Romero, 16:30:00 23:59:59 Alicia Peck [id number] 12/09/2017 12/09/2017 CLS Outpatient Romero, 08:30:00 23:59:59 Alicia Peck [id number] 11/27/2017 11/27/2017 [facility] Outpatient Romero, 08:45:00 23:59:59 Alicia Peck [id number] 11/27/2017 11/27/2017 CLS Outpatient Romero, 08:15:00 23:59:59 Alicia Peck [id number] 11/11/2017 11/11/2017 CLS Outpatient Romero, 16:15:00 23:59:59 Alicia Peck [id number] 11/07/2017 11/07/2017 CLS Outpatient Romero, 08:10:00 23:59:59 Alicia Peck [id number] 11/06/2017 11/06/2017 CLS Outpatient Romero, 08:13:00 23:59:59 Alicia Peck [id number] 10/30/2017 10/30/2017 CLS Outpatient Romero, 10:15:00 23:59:59 Alicia Peck [id number] 10/29/2017 10/29/2017 CLS Outpatient Romero, 15:45:00 23:59:59 Alicia Peck [id number] 10/08/2017 10/08/2017 CLS Outpatient Romero, 16:00:00 23:59:59 Alicia Peck [id number] 09/15/2017 09/15/2017 CLS Outpatient Romero, 08:28:00 23:59:59 Alicia Peck [id number] 09/11/2017 09/11/2017 CLS Outpatient Romero, 16:00:00 23:59:59 Alicia Peck [id number] 09/11/2017 09/11/2017 CLS Outpatient Romero, 15:45:00 23:59:59 Alicia Peck [id number] 09/04/2017 09/04/2017 CLS Outpatient Romero, 15:46:00 23:59:59 Alicia Peck [id number] 08/06/2017 08/06/2017 CLS Outpatient Romero, 15:20:00 23:59:59 Alicia Peck [id number] 07/16/2017 07/16/2017 CLS Outpatient Romero, 09:00:00 23:59:59 Alicia Peck [id number] 07/09/2017 07/09/2017 CLS Outpatient Romero, 14:00:00 23:59:59 Alicia Peck [id number] 07/07/2017 07/07/2017 CLS Outpatient Ava, 09:19:00 23:59:59 Mercedes [id number] 06/30/2017 06/30/2017 CLS Outpatient Romero, 14:36:00 23:59:59 Alicia Peck [id number] 06/11/2017 06/11/2017 CLS Outpatient Romero, 08:58:00 23:59:59 Alicia Peck [id number] 01/27/2018 Document 16:30:00 Registration [id number] 10/17/2017 10/17/2017 [facility] Outpatient [facility] # not [id number] 09:05:00 10:38:00 , LUCA Ramirez better [facility] [id number] 10/10/2017 10/10/2017 DIS Outpatient [facility] temp [id number] 10:34:00 12:56:00 , LUCA Ramirez [facility] Practice [id number] 09/04/2017 09/04/2017 DIS Outpatient [facility] # cough/con [id number] 14:42:00 16:04:00 L[place]ON Ramirez gestion/18 [facility] wks preg [id number] 06/11/2017 06/11/2017 DIS Outpatient [facility] # strep [id number] 14:40:00 15:55:00 L[place]ON Ramirez [facility] [id number] 05/27/2017 05/27/2017 DIS Outpatient [facility] # Wellness [id number] 16:01:00 17:04:00 LONDON Ramirez exam/wants [facility] allergy inj*LM [id number] 03/08/2016 03/08/2016 CLS Outpatient Skinny TORRES KINZA [id number] 10:31:00 23:59:[address] [facility] [place] [id number] 02/02/2018 PEN Preadmit [id number] 00:00:00
--- NOTE | 2018-02-03 17:14 | Labor and Delivery Note ---
- Labor and Delivery Labor and Delivery: NST reactive. Cervidil placed. Tolerated well.
[2018-02-03 20:50] VITALS: BMI 34.4
[2018-02-04] MEDS ORDERED: OXYTOCIN DRIP 30 UNIT/500 ML ML IV PRN (06:00)
[2018-02-04] MEDS: LR 1,000 ML IV PRN ×3 (06:04→15:10)
[2018-02-04] MEDS: D5LR 1,000 ML IV PRN ×2 (06:04→15:10)
--- NOTE | 2018-02-04 09:04 | Anesthesia Preoperative Report ---
Anesthesia Epidural/Spinal Rec - Date and Time Date: 02/04/18 Procedure: Labor Epidural Plan: Epidural - Vital Signs /Para: P:0 - Medictaions & Allergies Inpatient Medications: Current Medications Acetaminophen (Tylenol) 500 - 1,000 mg PO Q4H PRN PRN Reason: Pain Last Admin: 02/03/18 23:30 Dose: 1,000 mg Al Hydroxide/Mg Hydroxide (Maalox Plus) 30 ml PO Q3H PRN PRN Reason: Indigestion Calcium Carbonate (Tums) 500 - 1,000 mg PO Q2H PRN PRN Reason: Indigestion Carboprost Tromethamine (Hemabate) 250 mcg IM O PRN PRN Reason: .Downtime Diphenhydramine HCl (Benadryl) 50 mg PO HS PRN PRN Reason: Sleep Lactated Ringer's (Lactated Ringers) 1,000 mls @ 999 mls/hr IV .Q1H1M PRN Last Admin: 02/04/18 06:04 Dose: 999 mls/hr Dextrose/Lactated Ringer's (Dextrose 5%-Lactated Ringers) 1,000 mls @ 125 mls/ hr IV .Q8H PRN PRN Reason: Labor Last Admin: 02/04/18 06:04 Dose: 125 mls/hr Oxytocin (Pitocin Drip) 30 unit in 500 mls @ 2 mls/hr IV .Q24H PRN; Protocol PRN Reason: Induction/Augmentation Last Admin: 02/04/18 06:04 Dose: 2 mls/hr Methylergonovine Maleate (Methergine) 0.2 mg IM O PRN Misoprostol (Cytotec) 800 mcg SD ONCE PRN Sodium Chloride (Iv Flush) 10 - 80 ml IV PRN PRN PRN Reason: Flushing Terbutaline Sulfate (Brethine) 0.25 mg SQ PRN PRN Allergies/Adverse Reactions: Allergies Allergy/AdvReac Type Severity Reaction Status Date / Time Penicillins Allergy Verified 10/17/17 09:16 - Home Medications Home Medications: Home Medications Medication Instructions Recorded Confirmed Type Flonase (Fluticasone) 50 mcg nasal 1 spray INTRANASAL 05/27/17 10/17/17 History spray Zyrtec (Cetirizine) 10 mg tablet 10 mg PO DAILY PRN 05/27/17 01/20/18 History lactobacillus combination no.8 3 cell PO 05/27/17 10/17/17 History billion cell capsule 1 tab PO DAILY 09/04/17 01/20/18 History vitamin,calcium,hitcliux-lrmw-duniy acid tablet psyllium husk 0.52 gram capsule 1.04 g PO DAILY 09/04/17 01/20/18 History albuterol sulfate HFA 90 2 puff INH Q4H PRN #18 g 10/17/17 10/17/17 Rx mcg/actuation aerosol inhaler - Medical History Respiratory: DENIES: Asthma Cardiovascular: Reports: Hypertension (preeclampsia, protein in urine -sent here from office due to HTN & protein) Other History: Reports: Now - Surgical History Anesthesia Reactions: None Hx Family Anesthesia Reaction: No History of Motion Sickness: No - Social History Smoking Status: Never smoker Second Hand Exposure: No Substance Use Type: does not use Alcohol Intake Frequency: does not drink Hx Chewing Tobacco Use: No - Pertinent Findings Lab Data: CBC and BMP 02/03/18 16:27 02/03/18 16:27 BMP 02/03/18 16:27 Sodium 138 Potassium 4.2 Chloride 109 H Carbon Dioxide 18 L BUN 12.0 Creatinine 0.6 L Glucose 110 Calcium 8.9 Liver Function 02/03/18 Range/Units 16:27 Total Bilirubin 0.50 (0.20-1.30) MG/DL AST 22 (14-36) U/L ALT 20 (1-35) U/L Alkaline Phosphatase 162 H (38-126) U/L Albumin 3.5 (3.5-5.0) g/dL - Physical Exam Respiratory Exam: lungs clear Cardiovascular Exam: regular rate and rhythm - Airway Assessment Mallampati Score: II TMD: 3 Fingerbreadths Neck Extension: good Overall Assessment: may be difficult mask vent, may be difficult intubation - ASA ASA Score: 2 - Discussion Discussion: Discussed risks/options/alternatives of anesthesia and questions answered. Patient consents. Nursing pain assessment noted. Anesthesia Discussion: spouse Attestation Statement: Prior to the delivery of any anesthetic medication, I examined the patient, developed the plan, obtained the patient's consent and discussed the risk and benefits of the procedure with the patient/guardian.
[2018-02-04] MEDS ORDERED: BUTORPHANOL 2 MG/ML INJECTION IVP PRN (10:49)
[2018-02-04] MEDS ORDERED: ONDANSETRON 4 MG/2 ML INJECTION IVP PRN (13:04)
[2018-02-04] MEDS ORDERED: ROPIVACAINE 1% 10MG/ML INJ 200 MG, SUFentanil 50 MCG in NS 100 ML EPI PRN (13:04)
[2018-02-04] MEDS ORDERED: DiphenhydrAMINE 50 MG/ML INJECTION IVP PRN (13:04)
[2018-02-04] MEDS ORDERED: NALOXONE 0.4 MG/ML INJECTION IVP PRN (13:04)
[2018-02-04] MEDS ORDERED: TRANEXAMIC ACID 1,000 MG/10 ML VIAL IV ONE (21:00)
[2018-02-04] MEDS ORDERED: DiphenhydrAMINE 25 MG CAPSULE PO PRN (21:06)
[2018-02-04] MEDS ORDERED: HYDROCORTISONE 2.5% CREAM 30gm RECTALLY PRN (21:06)
[2018-02-04] MEDS ORDERED: RHOPHYLAC - PHARMACY CONSULT MC ONE ×2 (21:06)
[2018-02-04] MEDS ORDERED: OXYTOCIN DRIP 30 UNIT/500 ML ML IV SCH (21:15)
[2018-02-04] MEDS: IBUPROFEN 800 MG TABLET PO PRN (23:23)
[2018-02-04] MEDS: HYDROCODONE/APAP 5mg/325mg TABLET PO PRN (23:24)
[2018-02-05] MEDS: HYDROCODONE/APAP 5mg/325mg TABLET PO PRN ×6 (04:00→21:28)
[2018-02-05] MEDS: IBUPROFEN 800 MG TABLET PO PRN ×2 (08:15→16:08)
--- NOTE | 2018-02-05 08:23 | OB/GYN Progress Note ---
OB-PP Progress Note - General PPD1 Maternal Group B Strep: Negative Maternal blood type: A- Maternal Rubella Status: Immune General: Baby Rh positive - Subjective Date: 02/05/18 Lochia: Minimal Pain: controlled Voiding: voiding - Objective Vital Signs: Last Vital Signs Temp 98.0 F 02/05/18 04:00 Pulse 80 02/05/18 04:00 Resp 16 02/05/18 04:00 BP 140/76 H 02/05/18 04:00 Pulse Ox 98 02/05/18 04:00 Urine Output: good General: alert and oriented Abdomen: fundus firm, non-tender Extremities: non-tender Laboratory: Laboratory Results - last 24 hr 02/04/18 02/05/18 02/05/18 23:14 06:06 06:06 WBC 16.1 H D RBC 3.94 L Hgb 11.3 L Hct 34.7 L MCV 88.1 MCH 28.7 MCHC 32.6 RDW Std Deviation 50.1 Plt Count 233 MPV 10.7 Hgb /Adult Ratio 0.0000 RhIG Candidate? Is a candidate - Assessment Assessment: FAVD - Plan Plan: routine care, rhophylac
--- NOTE | 2018-02-05 09:25 | Pharmacy Consult ---
Pharmacy Consult-Rhophylac - Laboratory Information 02/03/18 02/04/18 02/05/18 16:27 23:14 06:06 Hgb /Adult Ratio 0.0000 Blood Type A Negative RhIG Candidate? Is a candidate - Consult Information Rh FACTOR CONSULT: Mother Blood Type = A NEGATIVE Child Blood Type = A POSITIVE Hgb / Adult Ratio = 0.0000 Will give Rho D Immunglobulin 300mcg IV x 1 dose. Thank you.
[2018-02-05] MEDS ORDERED: RHO(D) IMMUNE GLOBULIN 300 MCG/2 ML INJECTION IVP ONE (10:00)
--- NOTE | 2018-02-05 13:04 | Labor and Delivery Note ---
DATE OF DELIVERY 02/04/2018 Harriet is a 27-year-old 1 at 40 weeks 2 days gestational age at delivery, who was brought over from the clinic on 02/03/2018 for elevated blood pressures. Her pressures continued to be elevated so she was admitted and cervical ripening was begun with Cervidil. The next morning she was started on Pitocin. Her cervix was still fingertip, 50, and high a so I placed a Phillips bulb for further ripening. The bulb was expelled shortly thereafter and spontaneous rupture of membranes occurred. She received an epidural. She progressed slowly throughout labor. Pitocin had to be turned off and restarted throughout the day due to late decelerations and then restarted due to lack of contractions. When she got to be complete, she pushed for 2-1/2 hours. She was then exhausted and no longer making progress. She was consented for an operative vaginal delivery with forceps. Risks of injury to the baby, bleeding in the brain and risk of maternal lacerations were explained to the patient. The baby was in the PARISA position at the +4/5 station. She had a Phillips catheter in place. The closed Solano forceps were placed and easily articulated. The head was brought down to with the next contraction and then was delivered with the following contraction. The forceps were removed as the head was delivering. Baby was vigorous at delivery so he was placed on mom's abdomen and the cord clamping was delayed for more than two minutes. The placenta delivered spontaneously. She had a partial third-degree laceration. The sphincter was reinforced with two capgny-ig-khszze of 2-0 Vicryl. The remainder of the second-degree laceration was closed with 2-0 Vicryl. She also had a small laceration at the right hymenal ring that was also closed with 2-0 Vicryl. Her uterus was mildly boggy so she was given a dose of Hemabate and TXA. Her lochia was minimal by the time I finished the delivery. Baby is a viable male infant, Apgars 8/9, weight 3975 grams, name "Masoud". [facility]
[2018-02-05] MEDS: DOCUSATE CALCIUM 240 MG CAPSULE PO SCH (13:17)
[2018-02-06] MEDS: IBUPROFEN 800 MG TABLET PO PRN ×2 (00:35→11:13)
[2018-02-06 00:37] VITALS: O2SAT 99
[2018-02-06] MEDS: HYDROCODONE/APAP 5mg/325mg TABLET PO PRN ×3 (05:40→15:34)
--- NOTE | 2018-02-06 08:25 | OB/GYN Progress Note ---
OB-PP Progress Note - General PPD1 Maternal Group B Strep: Negative Maternal blood type: A- Maternal Rubella Status: Immune - Subjective Date: 02/06/18 Lochia: Minimal Pain: controlled Voiding: voiding - Objective Vital Signs: Last Vital Signs Temp 97.9 F 02/06/18 00:30 Pulse 89 02/06/18 00:30 Resp 18 02/06/18 00:30 BP 142/83 H 02/06/18 00:30 Pulse Ox 99 02/06/18 00:30 General: alert and oriented Abdomen: fundus firm, non-tender Extremities: non-tender - Assessment Assessment: FAVD - Plan Plan: routine care, discharge home, continue PNV
[2018-02-06 08:38] VITALS: BP 140/75; PULSE 96; RESP 16; TEMP 99
[2018-02-06] MEDS: DOCUSATE CALCIUM 240 MG CAPSULE PO SCH (11:13)
== END 2018-02-06 16:45 | disposition home or self-care (01) | DRG 775 ==
LOC: MC 02-03 16:05
PROVIDERS: ADMIT Obstetrics & Gynecology; ATTEND Obstetrics & Gynecology